=== PATIENT | male | born 1990 | race African-American/Black ===

== ENCOUNTER 2019-01-22 23:56 | Emergency (ER) | payer SELFPAY ==
[~2019-01-22] VITALS: Ht 172.7 cm; Wt 72.0 kg
[2019-01-23 00:02] VITALS: Ht 172.7 cm; Wt 72.0 kg
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
[2019-01-23] MEDS ORDERED: RISPERIDONE 1 MG TAB PO ONE (05:00)
--- NOTE | 2019-01-23 05:50 | ERD ---
ER Documentation Chief Complaint Chief Complaint pt out of psych meds, SOB, pt has flight of ideas HPI This is a 28-year-old male with a past medical history of psychiatric illness who is presenting with a desire for medication refill of his risperidone. The patient is very withdrawn in the room and seems to have difficulty answering questions. He has tangential thoughts and flight of ideas. The patient does endorse auditory and visual hallucinations. He does not specify what he sees, but he reports that he hears people telling him that he is worthless and that he should end his life. History and physical is limited secondary to psychosis. ROS Limited secondary to psychosis Medications Home Meds Unable to Obtain Active Prescriptions or Reported Meds Allergies Allergies: Coded Allergies: No Known Allergy (Unverified , 01/23/19) PMhx/Soc History of Surgery: No Anesthesia Reaction: No Hx Respiratory Disorders: Yes (ASTHMA ) Hx Alcohol Use: No Hx Substance Use: Yes (METH WEED) Hx Tobacco Use: Yes Smoking Status: Current every day smoker FmHx Unable to obtain secondary to psychosis Physical Exam Vitals Vital Signs Date Temp Pulse Resp B/P (MAP) Pulse Ox O2 O2 Flow FiO2 Time Delivery Rate 01/23/19 98.1 91 16 144/82 100 00:02 (102) Physical Exam Const: No apparent distress, well-developed, well-nourished Head: Normocephalic, Atraumatic Eyes: Normal Conjunctiva. Extraocular movements intact. Pupils equal, round and reactive to light ENT: Normal External Ears, Nose and Mouth. Neck: Full range of motion. No meningismus. Resp: Clear to auscultation bilaterally, No wheezes, rales or rhonchi Cardio: Regular rate and rhythm. No murmurs, rubs or gallops Abd: Soft, non tender, non distended. Normal bowel sounds Skin: No petechiae or rashes Back: No midline tenderness. No CVA tenderness Ext: No cyanosis, or edema Neur: Awake and alert, oriented 4. Cranial nerves intact. No facial droop. Normal strength, sensation and coordination. Psych: Withdrawn. Tangential thinking. Flight of ideas. Easily distractible. Auditory and visual hallucinations. Suicidal ideations without plan. Result Diagram: 01/23/19 0322 01/23/19 0322 Results 24 hrs Laboratory Tests Test 01/23/19 03:00 01/23/19 03:22 Urine Color YELLOW Urine Clarity SLIGHTLY CLOUDY Urine pH 5.0 Urine Specific [place] 1.031 Urine Ketones TRACE mg/dL Urine Nitrite NEGATIVE mg/dL Urine Bilirubin NEGATIVE mg/dL Urine Urobilinogen NEGATIVE mg/dL Urine Leukocyte Esterase NEGATIVE Khari/ul Urine Microscopic RBC 0 /HPF Urine Microscopic WBC 1 /HPF Urine Mucus FEW /HPF Urine Hemoglobin NEGATIVE mg/dL Urine Glucose NEGATIVE mg/dL Urine Total Protein NEGATIVE mg/dl Urine Opiates Screen Negative Urine Barbiturates Negative Urine Amphetamines Screen Positive Urine Benzodiazepines Screen Negative Urine Cocaine Screen Negative Urine Cannabinoids Positive White Blood Count 12.0 10^3/ul Red Blood Count 5.03 10^6/ul Hemoglobin 13.1 g/dl Hematocrit 40.9 % Mean Corpuscular Volume 81.3 fl Mean Corpuscular Hemoglobin 26.0 pg Mean Corpuscular Hemoglobin Concent 32.0 g/dl Red Cell Distribution Width 14.3 % Platelet Count 219 10^3/UL Mean Platelet Volume 10.6 fl Immature Granulocytes % 0.300 % Neutrophils % 63.8 % Lymphocytes % 25.2 % Monocytes % 9.6 % Eosinophils % 0.6 % Basophils % 0.5 % Nucleated Red Blood Cells % 0.0 /100WBC Immature Granulocytes # 0.040 10^3/ul Neutrophils # 7.6 10^3/ul Lymphocytes # 3.0 10^3/ul Monocytes # 1.2 10^3/ul Eosinophils # 0.1 10^3/ul Basophils # 0.1 10^3/ul Nucleated Red Blood Cells # 0.0 10^3/ul Sodium Level 146 mmol/L Potassium Level 3.5 mmol/L Chloride Level 105 mmol/L Carbon Dioxide Level 28 mmol/L Anion Gap 13 Blood Urea Nitrogen 12 mg/dl Creatinine 0.75 mg/dl Est Glomerular Filtrat Rate mL/min > 60 mL/min Glucose Level 82 mg/dl Calcium Level 9.9 mg/dl Total Bilirubin 0.2 mg/dl Direct Bilirubin 0.00 mg/dl Indirect Bilirubin 0.2 mg/dl Aspartate Amino Transf (AST/SGOT) 23 IU/L Alanine Aminotransferase (ALT/SGPT) 9 IU/L Alkaline Phosphatase 76 IU/L Total Protein 7.8 g/dl Albumin 4.5 g/dl Globulin 3.30 g/dl Albumin/Globulin Ratio 1.36 Salicylates Level < 1.0 mg/dl Acetaminophen Level < 10.0 ug/ml Ethyl Alcohol Level < 10.0 mg/dl Current Medications Medications Dose Sig/Lisa Start Time Status Last (Trade) Ordered Route PRN Stop Time Admin Dose Reason Admin Risperidone 1 mg QHS PO 01/23/19 (Risperdal) 21:00 Risperidone 1 mg ONCE ONCE 01/23/19 DC 01/23/19 (Risperdal) PO 05:00 04:51 01/23/19 05:01 Procedures/MDM MDM The patient's presentation warrants further investigation. Previous medical records, if available, were reviewed. LABS The patient's laboratory testing was obtained and reviewed. No emergent treatment was required unless described below. CBC: Leukocytosis without shift, likely reactive. Mild normocytic anemia, not emergent. Normal platelet count. Chemistry: No E/o severe acidosis or alkalosis or renal failure or liver disease or diabetic ketoacidosis Urine: No E/o acute infection or hematuria Tox: No E/o alcohol abuse. UDS positive for meth. No E/o salicylate or acetaminophen use. TREATMENT/DISPOSITION The patient's workup included a medical screening examination, laboratory analysis, and diagnostic imaging such as EKG, chest x-ray or CT brain as indicated. The patient's laboratory analysis, diagnostic imaging do not suggest an acute organic pathology. At this time I believe the patient's presentation is consistent with underlying psychiatric illness and likely exacerbation of this illness and/or psychosis. I have a much lower clinical concern for delirium or acute organic pathology such as toxicologic, metabolic, ischemic, intracranial hemorrhage, infectious process. However, we must rule this out prior to relying a diagnosis of underlying psychiatric illness. The patient is medically cleared for psychiatric evaluation. I kept the patient and/or family informed of laboratory and diagnostic imaging results throughout the emergency room course. The patient did not require any physical or chemical restraint while under my care. Psychiatric consultation: Telemetry medicine psychiatry has been consulted on this case to evaluate the patient for possible acute psychiatric illness that would require inpatient hospitalization. The psychiatrist recommended a 5150 hold. Medication recommendations will be addressed. The patient was given a dose of risperidone in the emergency department. The patient is currently pending PET team evaluation. The patient will be signed out to the oncoming physician. OBSERVATION NOTE Time: 4 hours Family Hx: No Diabetes Evaluation: Multiple exams showed improving symptoms and no evidence of worsening psychosis Disclaimer: Inadvertent spelling and grammatical errors are likely due to EHR/dictation software use and do not reflect on the overall quality of patient care. Note that the electronic time recorded on this note does not necessarily reflect the actual time of the patient encounter. Departure Diagnosis: Primary Impression: Acute psychosis Additional Impressions: Schizophrenia Schizophrenia type: disorganized schizophrenia Qualified Codes: F20.1 - Disorganized schizophrenia Methamphetamine abuse Noncompliance with medications Leukocytosis Leukocytosis type: unspecified Qualified Codes: D72.829 - Elevated white blood cell count, unspecified Normocytic anemia Condition: BERNICE Miranda MD Jan 23, 2019 05:50
[2019-01-23] MEDS ORDERED: OLANZAPINE (ODT) 5 MG TAB ODT ONE (19:00)
[2019-01-23] MEDS ORDERED: RISPERIDONE 1 MG TAB PO SCH (21:00)
[2019-01-23 23:10] VITALS: BP 94/53; PULSE 63; RESP 16
== END 2019-01-23 23:10 ==
LOC: E/R 23:56
DX: F23 Brief psychotic disorder (principal); F15.10 Other stimulant abuse, uncomplicated; D72.829 Elevated white blood cell count, unspecified; D64.9 Anemia, unspecified; J45.901 Unspecified asthma with (acute) exacerbation; F17.210 Nicotine dependence, cigarettes, uncomplicated; Z91.19 Patient's noncompliance with other medical treatment and regimen
CPT/HCPCS: 36415; 80053; 80307; 81001; 81003; 85025; 99285